=== PATIENT | female | born 1965 | race American Indian/Alaskan Native ===

== ENCOUNTER 2016-11-14 04:00 | Emergency (ER) | payer MEDICAID ==
[2016-11-14] MEDS ORDERED: PROVENTIL IH ONE ×3 (04:38→08:07)
[2016-11-14 05:11] LABS: Basophils % (Auto) 0.9 % (0.0-1.8); Eosinophils % (Auto) 2.2 % (0.0-4.3); Hematocrit 43.8 % (30.3-42.9); Hemoglobin 14.6 gm/dl (10.1-14.3); Mean Corpuscular HGB Conc 33 % (30-34); Mean Corpuscular Hemoglobin 28 pg (28-32); Mean Corpuscular Volume 85 fl (79-97); Platelet Count 294 K/mm3 (140-440); Red Blood Count 5.18 M/mm3 (3.65-5.03); Red Cell Distribution Width 15.6 % (13.2-15.2); White Blood Count 7.6 K/mm3 (4.5-11.0)
[2016-11-14 05:24] LABS: Blood Urea Nitrogen 12 mg/dL (7-17); Calcium 9.5 mg/dL (8.4-10.2); Carbon Dioxide 30 mmol/L (22-30); Chloride 100.6 mmol/L (98-107); Glucose 111 mg/dL (65-100); Potassium 3.3 mmol/L (3.6-5.0); Sodium 143 mmol/L (137-145)
[2016-11-14 05:31] LABS: Anion Gap 16 mmol/L
[2016-11-14] MEDS ORDERED: DUONEB 0.5 MG-3 MG/3 ML SOLN IH ONE (08:05)
[2016-11-14] MEDS ORDERED: DELTASONE PO ONE (08:06)
--- NOTE | 2016-11-14 08:27 | XRay Report ---
ROUTINE CHEST, TWO VIEWS: PA and lateral views demonstrate the heart and mediastinal contour to be of normal size and shape. The lungs are clear and fully expanded and the soft tissues and bony structures are normal. IMPRESSION: Normal study.
--- NOTE | 2016-11-14 09:53 | Emergency Department Report ---
Chief Complaint: Adult Asthma Stated Complaint: SOB/CHEST PAIN Time Seen by Provider: 11/14/16 09:15 - HPI History of Present Illness: Patient here reports shortness of breath or chest tightness 2 weeks. She reports that she is nausea without any vomiting. She denies a history of asthma and said that she's been using her inhalers without any relief. She reports that she has been coughing times one week and coughing up yellow phlegm. Reports fever last night. has a history of asthma and says she feels like she is having an asthma attack. She denies any fever or chills. Reports chest tightness and painful with coughing. Pain is 10 out of 10 with coughing - ROS Review of Systems: All systems are negative unless stated in HPI above. - Exam Vital Signs: Vital Signs 11/14/16 11/14/16 11/14/16 04:23 04:45 05:05 Temperature 99.0 F Pulse Rate 102 H Pulse Rate [ 102 H 110 H Posterior] Respiratory 26 H Rate Respiratory 25 H 22 Rate [Posterior ] Blood Pressure 149/110 O2 Sat by Pulse 95 Oximetry 11/14/16 11/14/16 08:18 08:55 Temperature Pulse Rate Pulse Rate [ 96 H 102 H Posterior] Respiratory Rate Respiratory 20 18 Rate [Posterior ] Blood Pressure O2 Sat by Pulse Oximetry Physical Exam: General: This is a 51-year-old female well-nourished well-developed in no acute distress. Lungs: Clear to auscultate bilaterally, no rhonchi wheezes or rales. Normal work of breathing CV: Mild tachycardia 102, pressure 149/110. S1 and S2. Chest wall tender to palpate. MSE screening note: Focused history and physical exam performed. Due to findings the following was ordered:see [facility] [place] ED Medical Decision Making - Lab Data Result diagrams: 11/14/16 04:46 11/14/16 04:46 - Radiology Data Radiology results: report reviewed Chest x-ray revealed no acute cardiopulmonary processes - Medical Decision Making Medical decision making: Patient seen by provider in triage area. Appropriate protocol activated and patient to main ED to be seen by physician. ED Disposition for MSE Condition: Stable
[2016-11-14] MEDS ORDERED: K-DUR PO ONE (11:33)
[2016-11-14] MEDS ORDERED: NORCO 5/325 PO ONE (11:39)
[2016-11-14] MEDS ORDERED: TESSALON PERLES PO ONE (11:39)
--- NOTE | 2016-11-14 11:44 | Emergency Department Report ---
HPI - General Chief Complaint: Adult Asthma Time Seen by Provider: 11/14/16 09:54 - HPI HPI: Room 37 The patient is a 51-year-old female presenting with a chief complaint of asthma. The patient states yesterday evening at approximately 17:30 she had an asthma attack which included shortness of breath and cough. Patient states her symptoms felt exactly like her previous pulse of asthma. The patient states she tried her nebulizer at home 3 separate times and it did not help. The patient complains of chest pain when she coughs and headache when she coughs. Patient states her cough is productive of yellow sputum. The patient states last night she had a subjective fever but her daughter also measured it at 102 F. The patient states she was wheezing upon arrival to the ED but after nebulizers she is no longer wheezing but has soreness from coughing Location: Lungs Duration: Constant since last night Quality: Soreness, shortness of breath, wheezing Severity: Moderate Modifying factors: [see above] Context: [see above] Mode of transportation: [not driving] ED Past Medical Hx - Past Medical History Hx Hypertension: Yes Hx Diabetes: Yes Hx Liver Disease: Yes (hepatitis C) Hx Psychiatric Treatment: (bipolar/depression) Hx Asthma: Yes Hx COPD: Yes Additional medical history: hep C - Surgical History Past Surgical History?: Yes Additional Surgical History: hysterectomy, hernia repair - Social History Smoking Status: Current Every Day Smoker Substance Use Type: None - Medications Home Medications: Home Medications Medication Instructions Recorded Confirmed Last Taken Type Ibuprofen [Motrin 600 MG tab] 600 mg PO Q8H PRN #30 tablet 10/21/16 Unknown Rx Losartan/Hydrochlorothiazide 1 tab PO QDAY #30 tab 10/21/16 Unknown Rx [Hyzaar 100-25 TAB] Metformin HCl [Glucophage] 1,000 mg PO BID #60 tab 10/21/16 Unknown Rx Amoxicillin [Amoxicillin TAB] 875 mg PO BID #14 tablet 10/26/16 Unknown Rx ALBUTEROL Inhaler [ProAir HFA 2 puff IH QID PRN #1 inhalation 11/14/16 Unknown Rx Inhaler] Azithromycin [Zithromax Z-GIOVANNA] 0 mg PO DAILY #6 tab 11/14/16 Unknown Rx Benzonatate [Tessalon Perles] 100 mg PO Q8HR #30 capsule 11/14/16 Unknown Rx Ibuprofen [Motrin 800 MG tab] 800 mg PO Q8HR PRN #20 tablet 11/14/16 Unknown Rx Prednisone [predniSONE 10 mg 10 mg PO .TAPER #1 tab.ds.pk 11/14/16 Unknown Rx (6-Day Pack, 21 Tabs)] Promethazine /Codeine 5 ml PO Q6H PRN #100 ml 11/14/16 Unknown Rx [Phenergan/Codeine 6.25-10 mg/5 ml] ED Review of Systems ROS: Stated complaint: SOB/CHEST PAIN Other details as noted in HPI Comment: All other systems reviewed and negative Constitutional: fever. denies: chills Eyes: denies: eye pain, eye discharge, vision change ENT: denies: ear pain, throat pain Respiratory: cough, shortness of breath Cardiovascular: denies: palpitations Endocrine: no symptoms reported Gastrointestinal: nausea, vomiting. denies: abdominal pain, diarrhea Genitourinary: denies: urgency, dysuria, discharge Musculoskeletal: myalgia. denies: back pain, joint swelling, arthralgia Skin: denies: rash, lesions Neurological: headache Psychiatric: denies: anxiety, depression Hematological/Lymphatic: denies: easy bleeding, easy bruising Physical Exam - Physical Exam Vital Signs: Vital Signs 11/14/16 11/14/16 11/14/16 04:23 04:45 05:05 Temperature 99.0 F Pulse Rate 102 H Pulse Rate [ 102 H 110 H Posterior] Respiratory 26 H Rate Respiratory 25 H 22 Rate [Posterior ] Blood Pressure 149/110 O2 Sat by Pulse 95 Oximetry 11/14/16 11/14/16 11/14/16 08:18 08:55 10:08 Temperature Pulse Rate Pulse Rate [ 96 H 102 H Posterior] Respiratory Rate Respiratory 20 18 Rate [Posterior ] Blood Pressure O2 Sat by Pulse 99 Oximetry Physical Exam: GENERAL: The patient is well-developed well-nourished female lying on stretcher not appear to be in acute distress. [] HEENT: Normocephalic. Atraumatic. Extraocular motions are intact. Patient has moist mucous membranes. NECK: Supple. Trachea midline CHEST/LUNGS: Clear to auscultation. There is no respiratory distress noted. HEART/CARDIOVASCULAR: Regular. There is no tachycardia. There is no gallop rub or murmur. ABDOMEN: Abdomen is soft, nontender. Patient has normal bowel sounds. There is no abdominal distention. SKIN: There is no rash. There is no diaphoresis. NEURO: The patient is awake, alert, and oriented. The patient is cooperative. The patient has normal speech MUSCULOSKELETAL: There is no evidence of acute injury. ED Course Vital Signs 11/14/16 11/14/16 11/14/16 04:23 04:45 05:05 Temperature 99.0 F Pulse Rate 102 H Pulse Rate [ 102 H 110 H Posterior] Respiratory 26 H Rate Respiratory 25 H 22 Rate [Posterior ] Blood Pressure 149/110 O2 Sat by Pulse 95 Oximetry 11/14/16 11/14/16 11/14/16 08:18 08:55 10:08 Temperature Pulse Rate Pulse Rate [ 96 H 102 H Posterior] Respiratory Rate Respiratory 20 18 Rate [Posterior ] Blood Pressure O2 Sat by Pulse 99 Oximetry ED Medical Decision Making - Lab Data Result diagrams: 11/14/16 04:46 11/14/16 04:46 Laboratory Tests 11/14/16 11/14/16 04:46 04:46 WBC 7.6 RBC 5.18 H Hgb 14.6 H Hct 43.8 H MCV 85 MCH 28 MCHC 33 RDW 15.6 H Plt Count 294 Lymph % (Auto) 17.5 [place] % (Auto) 5.7 Eos % (Auto) 2.2 Baso % (Auto) 0.9 Lymph # 1.3 [place] # 0.4 Eos # 0.2 Baso # 0.1 Seg Neutrophils % 73.7 H Seg Neutrophils # 5.6 Sodium 143 Potassium 3.3 L Chloride 100.6 Carbon Dioxide 30 Anion Gap 16 BUN 12 Creatinine 0.8 Estimated GFR > 60 BUN/Creatinine Ratio 15.00 Glucose 111 H Calcium 9.5 - EKG Data -: EKG Interpreted by Me EKG shows normal: sinus rhythm Rate: normal - EKG Data When compared to previous EKG there are: previous EKG unavailable Interpretation: other (no ischemic changes seen) - Radiology Data Radiology results: image reviewed (chest x-ray) interpreted by me: Chest x-ray-no focal infiltrates, no pneumothorax - Differential Diagnosis asthma exacerbation, pneumonia, bronchitis Critical care attestation.: If time is entered above; I have spent that time in minutes in the direct care of this critically ill patient, excluding procedure time. ED Disposition Clinical Impression: Acute bronchitis, Shortness of breath, Acute asthma exacerbation Disposition: DISCHARGED TO HOME OR SELFCARE Is pt being admited?: No Does the pt Need Aspirin: No Condition: Stable Instructions: Acute Bronchitis (ED) Additional Instructions: Return to the emergency department immediately should you develop worsening symptoms, fever, inability to tolerate food or liquid or any other concerns. Prescriptions: ALBUTEROL Inhaler [ProAir HFA Inhaler] 2 puff IH QID PRN #1 inhalation PRN Reason: Shortness Of Breath Azithromycin [Zithromax Z-GIOVANNA] 0 mg PO DAILY #6 tab Benzonatate [Tessalon Perles] 100 mg PO Q8HR #30 capsule Ibuprofen [Motrin 800 MG tab] 800 mg PO Q8HR PRN #20 tablet PRN Reason: Pain Prednisone [predniSONE 10 mg (6-Day Pack, 21 Tabs)] 10 mg PO .TAPER #1 tab.ds.pk Promethazine /Codeine [Phenergan/Codeine 6.25-10 mg/5 ml] 5 ml PO Q6H PRN #100 ml PRN Reason: cough Referrals: PRIMARY CARE, [Primary Care Provider] - 3-5 Days BLANCA PELAEZ MD [Staff Physician] - 3-5 Days LILIAN YAO MD [Staff Physician] - 3-5 Days Time of Disposition: 11:50
[2016-11-14 12:14] VITALS: BP 144/98
== END 2016-11-14 12:15 | disposition home or self-care (01) ==
LOC: ED 04:00
DX: J45.901 Unspecified asthma with (acute) exacerbation (principal); J20.9 Acute bronchitis, unspecified; I10 Essential (primary) hypertension; E11.9 Type 2 diabetes mellitus without complications; F31.9 Bipolar disorder, unspecified; J44.9 Chronic obstructive pulmonary disease, unspecified; F17.200 Nicotine dependence, unspecified, uncomplicated; Z90.710 Acquired absence of both cervix and uterus
CPT/HCPCS: 36415; 71020; 80048; 85025; 93005; 93010; 94640; 99284; J7512

== ENCOUNTER 2016-11-22 00:42 | Emergency (ER) | payer MEDICAID ==
[2016-11-22] MEDS ORDERED: MOTRIN PO ONE (03:46)
[2016-11-22] MEDS ORDERED: FLEXERIL PO ONE (03:46)
--- NOTE | 2016-11-22 03:49 | Emergency Department Report ---
HPI - General Chief Complaint: Extremity Injury, Lower Time Seen by Provider: 11/22/16 03:20 - HPI HPI: Patient is a 51-year-old female who presents to ED complaining of right hip pain 3 days. Patient states 3 days ago she hit her right hip on the side of a table and has been hurting since then. Patient states she is able to walk but with some difficulty due to the pain in the right anterior hip. Patient denies falling, fever, chills, nausea, vomiting, loss of sensation on the leg or hip, chest pain, shortness of breath. ED Past Medical Hx - Past Medical History Previous Medical History?: Yes Hx Hypertension: Yes Hx Diabetes: Yes Hx Liver Disease: Yes (hepatitis C) Hx Psychiatric Treatment: (bipolar/depression) Hx Asthma: Yes Hx COPD: Yes Additional medical history: hep C - Surgical History Past Surgical History?: Yes Additional Surgical History: hysterectomy, hernia repair - Social History Smoking Status: Light Tobacco Smoker Substance Use Type: Alcohol - Medications Home Medications: Home Medications Medication Instructions Recorded Confirmed Last Taken Type Ibuprofen [Motrin 600 MG tab] 600 mg PO Q8H PRN #30 tablet 10/21/16 Unknown Rx Losartan/Hydrochlorothiazide 1 tab PO QDAY #30 tab 10/21/16 Unknown Rx [Hyzaar 100-25 TAB] Metformin HCl [Glucophage] 1,000 mg PO BID #60 tab 10/21/16 Unknown Rx Amoxicillin [Amoxicillin TAB] 875 mg PO BID #14 tablet 10/26/16 Unknown Rx ALBUTEROL Inhaler [ProAir HFA 2 puff IH QID PRN #1 inhalation 11/14/16 Unknown Rx Inhaler] Azithromycin [Zithromax Z-GIOVANNA] 0 mg PO DAILY #6 tab 11/14/16 Unknown Rx Benzonatate [Tessalon Perles] 100 mg PO Q8HR #30 capsule 11/14/16 Unknown Rx Prednisone [predniSONE 10 mg 10 mg PO .TAPER #1 tab.ds.pk 11/14/16 Unknown Rx (6-Day Pack, 21 Tabs)] Promethazine /Codeine 5 ml PO Q6H PRN #100 ml 11/14/16 Unknown Rx [Phenergan/Codeine 6.25-10 mg/5 ml] Cyclobenzaprine [Flexeril] 10 mg PO TID PRN #20 tablet 11/22/16 Unknown Rx Ibuprofen [Motrin 800 MG tab] 800 mg PO Q8HR PRN #20 tablet 11/22/16 Unknown Rx ED Review of Systems ROS: Stated complaint: HIP PAIN Other details as noted in HPI Constitutional: denies: chills, fever Eyes: denies: eye pain, eye discharge, vision change ENT: denies: ear pain, throat pain Respiratory: denies: cough, shortness of breath, wheezing Cardiovascular: denies: chest pain, palpitations Endocrine: no symptoms reported Gastrointestinal: denies: abdominal pain, nausea, diarrhea Genitourinary: denies: urgency, dysuria, discharge Musculoskeletal: denies: back pain, joint swelling, arthralgia Skin: denies: rash, lesions Neurological: denies: headache, weakness, paresthesias Psychiatric: denies: anxiety, depression Hematological/Lymphatic: denies: easy bleeding, easy bruising, swollen glands Physical Exam - Physical Exam General: Alert and oriented 3. A normal respiratory or any distress. Physical Exam: GENERAL: Alert and oriented x3, no apparent distress, Normal Gait, atraumatic. HEAD: Head is normocephalic and a-traumatic. EYES: Extra ocular muscles are intact. Pupils are equal, round, and reactive to light and accommodation. EARS: symetrical, atraumatic, non tender, ear canal clear and moderate cerumen, tympanic membrance non inflamed. gross auditory nml bilaterally. NOSE: Nose symetrical, Nontender,Nares appeared normal. MOUTH:Mouth is well hydrated and without lesions. Tonsils nonerythematous or swollen, Uvula midline, Tongue not elevated. Mucous membranes are moist. Posterior pharynx clear, no exudate or lesions. Patent airways. NECK: Supple. Non edematous, No carotid bruits. No lymphadenopathy or thyromegaly. LUNGS: Symetrical with respiration, No wheezing, no rales or crackles, CTAB. HEART: S1, S2 present, regular rate and rhythm without murmur, no rubs, no gallops. ABDOMEN: No organomegaly was noted,Positive bowel sounds, soft, and non- distended. . Nontender to palpation on all Quadrants, NO CVA tenderness EXTREMITIES/MUSCULOSKELETAL: No cyanosis, clubbing, rash, lesions or edema. Full ROM bilaterally. UE/LE Pulses 2+ bilaterally. LE and UE 5+ strength bilaterally. Full ROM in Right Hip. Tenderness to palpation of anterior hip muscle. NEUROLOGIC: No focal Deficit, Cranial nerves II through XII are grossly intact. No loss of sensation, No facial droop, SKIN: Warm and dry, No lesions, No ulceration or induration present. ED Medical Decision Making - Medical Decision Making 51-year-old female presents with right hip muscle strain. Discussed the patient home medication Motrin and Flexeril. Discussed the patient Flexeril as drowsy effects and did not take while driving or working. Discussed to follow up with primary care physician as referred. Patient discharged with a walker. She states she verbally understands and will follow-up. Critical care attestation.: If time is entered above; I have spent that time in minutes in the direct care of this critically ill patient, excluding procedure time. ED Disposition Clinical Impression: Strain of muscle of right hip Disposition: DISCHARGED TO HOME OR SELFCARE Is pt being admited?: No Does the pt Need Aspirin: No Condition: Stable Instructions: Muscle Strain (ED) Prescriptions: Cyclobenzaprine [Flexeril] 10 mg PO TID PRN #20 tablet PRN Reason: Muscle Spasm Ibuprofen [Motrin 800 MG tab] 800 mg PO Q8HR PRN #20 tablet PRN Reason: Pain Referrals: PRIMARY CARE, [Primary Care Provider] - 3-5 Days [facility] [Outside] - 3-5 Days [facility] [Outside] - 3-5 Days [facility] [Outside] - 3-5 Days [facility] [Outside] - 3-5 Days Forms: Work/School Release Form(ED) Time of Disposition: 03:55
[2016-11-22 04:01] VITALS: BP 141/103
== END 2016-11-22 04:27 | disposition home or self-care (01) ==
LOC: ED 00:42
DX: S76.011A Strain of muscle, fascia and tendon of right hip, initial encounter (principal); I10 Essential (primary) hypertension; E11.9 Type 2 diabetes mellitus without complications; J45.909 Unspecified asthma, uncomplicated; J44.9 Chronic obstructive pulmonary disease, unspecified; B19.20 Unspecified viral hepatitis C without hepatic coma; Z72.0 Tobacco use; W22.8XXA Striking against or struck by other objects, initial encounter; Y93.9 Activity, unspecified; Y99.9 Unspecified external cause status; Y92.89 Other specified places as the place of occurrence of the external cause
CPT/HCPCS: 99283

== ENCOUNTER 2017-01-24 21:08 | Emergency (ER) | payer MEDICAID ==
[2017-01-25 00:51] VITALS: BP 122/90
[2017-01-25] MEDS ORDERED: NEURONTIN PO ONE (01:50)
[2017-01-25] MEDS ORDERED: TORADOL IM ONE (01:51)
--- NOTE | 2017-01-25 02:01 | Emergency Department Report ---
HPI - General Chief Complaint: Back Pain/Injury Time Seen by Provider: 01/25/17 01:49 - HPI HPI: Patient is a 51-year-old male who presents to ED complaining of lower back pain 4 weeks. Patient states she has a primary care doctor that she states her back pain and is currently taking tramadol with no relief. Patient also states she had some throat pain for the past 2 days. Patient states is throbbing in nature and some pain with swallowing fluids or spit. Patient describes back pain is throbbing in nature, sometimes radiating down right leg. Patient denies fevers/chills/nausea/vomiting/abdominal pain/chest pain/ shortness of breath ED Past Medical Hx - Past Medical History Hx Hypertension: Yes Hx Diabetes: Yes Hx Liver Disease: Yes (hepatitis C) Hx Psychiatric Treatment: (bipolar/depression) Hx Asthma: Yes Hx COPD: Yes Additional medical history: hep C - Surgical History Additional Surgical History: hysterectomy, hernia repair - Social History Smoking Status: Light Tobacco Smoker Substance Use Type: Alcohol - Medications Home Medications: Home Medications Medication Instructions Recorded Confirmed Last Taken Type Ibuprofen [Motrin 600 MG tab] 600 mg PO Q8H PRN #30 tablet 10/21/16 Unknown Rx Losartan/Hydrochlorothiazide 1 tab PO QDAY #30 tab 10/21/16 Unknown Rx [Hyzaar 100-25 TAB] Metformin HCl [Glucophage] 1,000 mg PO BID #60 tab 10/21/16 Unknown Rx Amoxicillin [Amoxicillin TAB] 875 mg PO BID #14 tablet 10/26/16 Unknown Rx ALBUTEROL Inhaler [ProAir HFA 2 puff IH QID PRN #1 inhalation 11/14/16 Unknown Rx Inhaler] Azithromycin [Zithromax Z-GIOVANNA] 0 mg PO DAILY #6 tab 11/14/16 Unknown Rx Benzonatate [Tessalon Perles] 100 mg PO Q8HR #30 capsule 11/14/16 Unknown Rx Promethazine /Codeine 5 ml PO Q6H PRN #100 ml 11/14/16 Unknown Rx [Phenergan/Codeine 6.25-10 mg/5 ml] Cyclobenzaprine [Flexeril] 10 mg PO TID PRN #20 tablet 11/22/16 Unknown Rx Gabapentin [Neurontin] 300 mg PO DAILY #20 cap 01/25/17 Unknown Rx Ibuprofen [Motrin 800 MG tab] 800 mg PO Q8HR PRN #20 tablet 01/25/17 Unknown Rx Prednisone [predniSONE 10 mg 10 mg PO .TAPER #1 tab.ds.pk 01/25/17 Unknown Rx (6-Day Pack, 21 Tabs)] ED Review of Systems ROS: Stated complaint: BACK PAIN Other details as noted in HPI Constitutional: denies: chills, fever Eyes: denies: eye pain, eye discharge, vision change ENT: denies: ear pain, throat pain Respiratory: denies: cough, shortness of breath, wheezing Cardiovascular: denies: chest pain, palpitations Endocrine: no symptoms reported Gastrointestinal: denies: abdominal pain, nausea, diarrhea Genitourinary: denies: urgency, dysuria, discharge Musculoskeletal: myalgia. denies: back pain, joint swelling, arthralgia Skin: denies: rash, lesions, pruritus Neurological: denies: headache, weakness, numbness, paresthesias, confusion, abnormal gait Psychiatric: denies: anxiety, depression Hematological/Lymphatic: denies: easy bleeding, easy bruising Physical Exam - Physical Exam Vital Signs: Vital Signs 01/24/17 01/24/17 01/25/17 22:35 22:38 00:39 Temperature 98.1 F 98.1 F 98.1 F Pulse Rate 97 H 97 H 103 H Respiratory 20 20 18 Rate Blood Pressure 109/71 Blood Pressure 122/90 [Left] Blood Pressure 109/71 [Right] O2 Sat by Pulse 98 98 94 Oximetry Physical Exam: GENERAL: Alert and oriented x3, no apparent distress, Normal Gait, atraumatic. HEAD: Head is normocephalic and a-traumatic. EYES: Extra ocular muscles are intact. Pupils are equal, round, and reactive to light and accommodation. EARS: symetrical, atraumatic, non tender gross auditory nml bilaterally. NOSE: Nose symetrical, Nontender,Nares appeared normal. MOUTH:Mouth is well hydrated and without lesions. Tonsils erythematous and mildly swollen, Uvula midline, Tongue not elevated. Mucous membranes are moist. Posterior pharynx clear, no exudate or lesions. Patent airways. NECK: Supple. Non edematous, No carotid bruits. No lymphadenopathy or thyromegaly. LUNGS: Symetrical with respiration, No wheezing, no rales or crackles, CTAB. HEART: S1, S2 present, regular rate and rhythm without murmur, no rubs, no gallops. ABDOMEN: No organomegaly was noted,Positive bowel sounds, soft, and non- distended. . Nontender to palpation on all Quadrants, NO CVA tenderness.. EXTREMITIES/MUSCULOSKELETAL: No cyanosis, clubbing, rash, lesions or edema. Full ROM bilaterally. UE/LE Pulses 2+ bilaterally. Straight leg raise positive on the right extremity. NEUROLOGIC: No focal Deficit, Cranial nerves II through XII are grossly intact. No loss of sensation, PSYCHIATRIC: Mood is congruent with affect, denies suicidal or homicidal ideations. SKIN: Warm and dry, No lesions, No ulceration or induration present. ED Course Vital Signs 01/24/17 01/24/17 01/25/17 22:35 22:38 00:39 Temperature 98.1 F 98.1 F 98.1 F Pulse Rate 97 H 97 H 103 H Respiratory 20 20 18 Rate Blood Pressure 109/71 Blood Pressure 122/90 [Left] Blood Pressure 109/71 [Right] O2 Sat by Pulse 98 98 94 Oximetry ED Medical Decision Making - Medical Decision Making 51-year-old female presents with strep pharyngitis/lumbar radiculopathy ED course: Patient received 60 mg of Toradol and into her milligrams of gabapentin. Discussed the patient should also follow up with her primary care doctor. Rapid strep test positive for strep. Patient treated with 1.2 million of Bicillin. Patient discharged home with ibuprofen, gabapentin and prednisone pack. Discussed findings with patient. Discussed instructions of patient. Vital signs are stable. Patient is in no respiratory distress. Discussed the patient how important to follow-up with primary care physician within a week. Patient physician understands and will comply to follow-up. Critical care attestation.: If time is entered above; I have spent that time in minutes in the direct care of this critically ill patient, excluding procedure time. ED Disposition Clinical Impression: Strep pharyngitis, Lumbar radiculopathy Disposition: DISCHARGED TO HOME OR SELFCARE Is pt being admited?: No Does the pt Need Aspirin: No Condition: Stable Instructions: Strep Throat (ED), Tonsillitis (ED), Lumbar Radiculopathy (ED) Prescriptions: Gabapentin [Neurontin] 300 mg PO DAILY #20 cap Ibuprofen [Motrin 800 MG tab] 800 mg PO Q8HR PRN #20 tablet PRN Reason: Pain Prednisone [predniSONE 10 mg (6-Day Pack, 21 Tabs)] 10 mg PO .TAPER #1 tab.ds.pk Referrals: PRIMARY CAREMD [Primary Care Provider] - 3-5 Days ALIX SOL MD [Referring] - 3-5 Days [facility] [Outside] - 3-5 Days [facility] [Outside] - 3-5 Days [facility] [Outside] - 3-5 Days [facility] [Outside] - 3-5 Days Forms: Accompanied Note, Work/School Release Form Time of Disposition: 03:04
[2017-01-25] MEDS ORDERED: BICILLIN L-A IM ONE (02:02)
== END 2017-01-25 03:26 | disposition home or self-care (01) ==
LOC: ED 21:08
DX: J02.0 Streptococcal pharyngitis (principal); M54.16 Radiculopathy, lumbar region; I10 Essential (primary) hypertension; E11.9 Type 2 diabetes mellitus without complications; F31.9 Bipolar disorder, unspecified; J45.909 Unspecified asthma, uncomplicated; J44.9 Chronic obstructive pulmonary disease, unspecified; Z72.0 Tobacco use
CPT/HCPCS: 87430; 96372; 99283; J0561; J1885